=== PATIENT | female | born 1965 | race Caucasian/White ===

== ENCOUNTER → 2016-08-18 | Day surgery (SDC) | payer BC ==
[~2016-08-18] MED LIST: NO MEDICATIONS
--- NOTE | ~2016-08-18 | OR ---
Unit #: [id number] #: [id number] Patient: SHAWN PALACIOS [id number] [address] [place], [place] [address] [id number] O MR#: [id number] NAME: SHAWN PALACIOS ROOM: Date of Procedure: 08/18/2016 Admission Date: 08/18/2016 Surgeon: Hoang Ortega M.D. : 1965 Attending Physician: Hoang Ortega M.D. Primary Care Physician: Noelle Johnson M.D. OPERATIVE REPORT PREOPERATIVE DIAGNOSES Colorectal cancer screening. The patient has family history of colon polyps. PROCEDURE PERFORMED Colonoscopy up to cecum with excellent preparation and good visualization. POSTOPERATIVE DIAGNOSES Completely normal examination up to cecum. The patient did not have any polyps nor any diverticula or hemorrhoids. The quality of the prep was excellent. RECOMMENDATIONS Repeat colonoscopy in 5 years. SEDATION USED MAC. DESCRIPTION OF PROCEDURE Following detailed explanation of the potential risks and complications of a colonoscopy, namely perforation, bleeding, and complications related to sedation, the patient was brought to GI lab and laid in the left lateral decubitus position. A digital rectal examination was performed, which was normal. Lubricated tip of the Olympus video colonoscope was inserted through the anus and advanced under direct vision. The scope was advanced past rectosigmoid into descending colon. No diverticula were noted in this area. The scope tip was then navigated all the way up to cecum with visualization of the ileocecal valve and the appendiceal orifice. Preparation was excellent with good visualization and photodocumentation was obtained. Successive segments of the colonic mucosa were examined upon withdrawal and appeared unremarkable. There being no polyps, mass lesions, AVMs, or diverticula. The patient did not have any hemorrhoids at anal verge. The scope was then withdrawn and the patient returned to the recovery area. He tolerated the procedure without any postprocedure complications. Dictated by... Janessa Oneill/lexi Unit #: [id number] #: [id number] Patient: SHAWN PALACIOS TD: 08/18/2016 17:49 JOB #: [id number] CC: Lucy Paz M.D. OPERATIVE REPORT Page 1 of 1 X Hoang Ortega MD PROCEDURE OPERATIVE NOTE
== END | disposition home or self-care (01) ==
LOC: COPS 09:58
DX: Z12.11 Encounter for screening for malignant neoplasm of colon (principal); Z90.49 Acquired absence of other specified parts of digestive tract; Z90.89 Acquired absence of other organs; Z98.51 Tubal ligation status
CPT/HCPCS: J2250